=== PATIENT | female | born 1985 | race Caucasian/White ===

== ENCOUNTER → 2021-04-12 | Outpatient (CLI) | payer BC ==
[~2021-04-12] MED LIST: ALAVERT10 M1 PO; BIRTH CONTROL
[2021-04-12 11:20] LABS: BASO # 0.01 (0.02-0.10); HEMATOCRIT 40.9 % (37.0-47.0); HEMOGLOBIN 13.9 g/dL (12.5-16.0); LYMPH# 0.73 (1.50-4.00); MEAN CELL VOLUME 87 fl (78-100); MEAN CORPUSCULAR HEMOGLOBIN 29 pg (27-31); MEAN CORPUSCULAR HGB CONC 34 g/dL (33-37); MEAN PLATELET VOLUME 10.1 fl (7.4-10.4); MONO # 0.23 (0.20-0.80); NEU # 6.52 (1.40-6.50); PLATELET COUNT 173 K/mm3 (130-400); RED BLOOD COUNT 4.73 M/mm3 (4.10-5.30); RED CELL DISTRIBUTION WIDTH 12.4 % (11.5-14.5); WHITE BLOOD COUNT 7.5 K/mm3 (4.8-10.8)
[2021-04-12 11:33] LABS: ALBUMIN 4.3 g/dL (3.5-5.0)
[2021-04-12 11:34] LABS: POTASSIUM 3.8 mmol/L (3.5-5.1); SODIUM 137 mmol/L (136-145)
[2021-04-12 11:35] LABS: CALCIUM 9.6 mg/dL (8.3-10.5)
[2021-04-12 11:36] LABS: GLUCOSE 112 mg/dL (65-105); TOTAL PROTEIN 7.9 g/dL (6.4-8.3)
[2021-04-12 11:37] LABS: CARBON DIOXIDE 20 mmol/L (22-29)
[2021-04-12 11:38] LABS: TOTAL BILIRUBIN 0.6 mg/dL (0.2-1.2)
[2021-04-12 11:41] LABS: AST-SGOT 17 U/L (5-34)
[2021-04-12 11:42] LABS: ALT/SGPT 17 U/L (0-55)
[2021-04-12 12:22] LABS: TROPONIN-I < 0.03 ng/mL (<0.030)
== END ==
LOC: LAB 11:06
PROVIDERS: Nurse Practitioner Family
DX: R06.02 Shortness of breath (principal); R00.0 Tachycardia, unspecified